=== PATIENT | male | born 1965 | race Caucasian/White ===

== ENCOUNTER → 2017-12-19 | Outpatient (CLI) | payer BC ==
--- NOTE | 2017-12-19 12:46 | XR ---
EXAMINATION TYPE: XR chest 2V DATE OF EXAM: 12/19/2017 COMPARISON: NONE HISTORY: Shortness of breath TECHNIQUE: Frontal and lateral views of the chest are obtained. FINDINGS: Scattered senescent parenchymal changes noted. Hyperinflation compatible with COPD. No evidence for infiltrate. No evidence for atelectasis. Heart size is stable. Mediastinal structures are stable and grossly unremarkable. No evidence for hilar prominence. Degenerative changes dorsal spine. IMPRESSION: 1. No evidence for acute pulmonary disease.
[2017-12-19 13:37] LABS: Anion Gap 9 mmol/L; Blood Urea Nitrogen 13 mg/dL (9-20); Calcium 9.4 mg/dL (8.4-10.2); Carbon Dioxide 27 mmol/L (22-30); Chloride 103 mmol/L (98-107); Glucose 101 mg/dL (74-99); Sodium 139 mmol/L (137-145)
[2017-12-19 14:05] LABS: Appearance,Urine Clear (Clear); Bilirubin,Urine Negative (Negative); Blood,Urine Small (Negative); Color,Urine Yellow; Glucose,Urine (UA) Negative (Negative); Ketones,Urine Negative (Negative); Leukocyte Esterase,Urine Negative (Negative); Nitrite,Urine Negative (Negative); Protein,Urine Negative (Negative); RBC,Urine 3 /hpf (0-5); Specific Gravity,Urine 1.009 (1.001-1.035); Squamous Epithelial Cell,Urine <1 /hpf (0-4); Urobilinogen,Urine <2.0 mg/dL (<2.0); WBC,Urine 1 /hpf (0-5)
[2017-12-19 20:35] LABS: Hepatitis A Antibody IgM Non-Reactive (Non-Reactive); Hepatitis B Core IgM Non-Reactive (Non-Reactive)
[2017-12-20 10:18] LABS: T4/T8 Ratio (CD4:CD8) 0.9 (1.0-3.7)
[2017-12-20 13:57] LABS: HIV-1 RNA DETECTED (Not detected); HIV-1 RNA, Quant 71 Copies/mL (<40)
== END ==
LOC: RADXRMAIN 12:18
PROVIDERS: ATTEND Internal Medicine Infectious Disease
DX: R07.89 Other chest pain (principal); Z72.0 Tobacco use
CPT/HCPCS: 36415; 71046; 80048; 80074; 81001; 86360; 87536

== ENCOUNTER → 2018-06-15 | Outpatient (CLI) | payer OTHER ==
[2018-06-15 11:12] LABS: Basophils # (A) 0.1 k/uL (0-0.2); Basophils % (A) 1 %; Eosinophils # (A) 0.2 k/uL (0-0.7); Eosinophils % (A) 5 %; HCT 44.4 % (39.0-53.0); HGB 14.2 gm/dL (13.0-17.5); Lymphocytes # (A) 1.8 k/uL (1.0-4.8); Lymphocytes % (A) 36 %; MCHC 32.1 g/dL (31.0-37.0); MCV 106.1 fL (80.0-100.0); Macrocytosis Slight; Mean Platelet Volume 6.8; Monocytes # (A) 0.3 k/uL (0-1.0); Monocytes % (A) 7 %; Neutrophils # (A) 2.4 k/uL (1.3-7.7); Neutrophils % (A) 48 %; Platelet Count 241 k/uL (150-450); RBC 4.18 m/uL (4.30-5.90); RDW 12.1 % (11.5-15.5)
[2018-06-15 11:24] LABS: Anion Gap 8 mmol/L; Blood Urea Nitrogen 19 mg/dL (9-20); Calcium 9.5 mg/dL (8.4-10.2); Carbon Dioxide 29 mmol/L (22-30); Chloride 101 mmol/L (98-107); Glucose 94 mg/dL (74-99); Potassium 4.7 mmol/L (3.5-5.1); Sodium 138 mmol/L (137-145)
[2018-06-16 10:57] LABS: T4/T8 Ratio (CD4:CD8) 1.3 (1.0-3.7)
[2018-06-16 14:23] LABS: HIV-1 RNA Not detected (Not detected); HIV-1 RNA, Quant <40 Copies/mL (<40)
== END | disposition home or self-care (01) ==
LOC: LABWHC1 09:53
PROVIDERS: ATTEND Internal Medicine Infectious Disease
DX: B20 Human immunodeficiency virus [HIV] disease (principal)
CPT/HCPCS: 36415; 80048; 85025; 86360; 87536

== ENCOUNTER → 2019-02-15 | Outpatient (CLI) | payer OTHER ==
[2019-02-15 11:35] LABS: Basophils # (A) 0.1 k/uL (0-0.2); Basophils % (A) 1 %; Eosinophils # (A) 0.1 k/uL (0-0.7); Eosinophils % (A) 2 %; HCT 43.1 % (39.0-53.0); Lymphocytes # (A) 1.9 k/uL (1.0-4.8); Lymphocytes % (A) 24 %; MCHC 32.6 g/dL (31.0-37.0); MCV 104.5 fL (80.0-100.0); Macrocytosis Slight; Mean Platelet Volume 7.1; Monocytes # (A) 0.4 k/uL (0-1.0); Monocytes % (A) 5 %; Neutrophils # (A) 4.9 k/uL (1.3-7.7); Neutrophils % (A) 64 %; Platelet Count 289 k/uL (150-450); RBC 4.12 m/uL (4.30-5.90); WBC 7.6 k/uL (3.8-10.6)
[2019-02-15 17:07] LABS: Anion Gap 6.1 mmol/L (4.00-12.00); Calcium 9.5 mg/dL (8.7-10.3); Carbon Dioxide 28.9 mmol/L (21.6-31.8); Potassium 4.3 mmol/L (3.5-5.5)
[2019-02-16 10:44] LABS: T4/T8 Ratio (CD4:CD8) 1.2 (1.0-3.7)
[2019-02-16 14:39] LABS: HIV-1 RNA Not detected (Not detected); HIV-1 RNA, Quant <40 Copies/mL (<40)
== END | disposition home or self-care (01) ==
LOC: LABWHC1 11:02
PROVIDERS: ATTEND Internal Medicine Infectious Disease
DX: B20 Human immunodeficiency virus [HIV] disease (principal)
CPT/HCPCS: 36415; 80048; 85025; 86360; 87536